=== PATIENT | male | born 1940 | race Caucasian/White ===

== ENCOUNTER → 2017-05-14 | Outpatient (CLI) | payer MEDICARE, OTHER ==
[~2017-05-14] MED LIST: 8 HOUR PAIN RE650 M1 PO; ASPIRIN EC81 MG PO; B COMPLETE1 EACH PO; COLACE100 MG PO; FISH OIL300 MG PO; GLUCOSAMINE &1 EAC1 PO; LIPITOR40 MG PO; MAGNESIUM250 M1 PO; ODORLESS GARLI300 MG PO; OSCAL + D500 MG PO; PERCOCET 5-3251 EACH PO; SAW PALMETTO C1 EACH PO; STOOL SOFTENER100 MG PO; THERA-VITE W/ B1 TAB PO; TOPROL XL25 MG PO; ULTRAM50 MG PO; VIAGRA100 MG PO; VITAMIN C500 M4 PO
== END | disposition disaster alternative care site (69) ==
LOC: GRAD 09:31
DX: C61 Malignant neoplasm of prostate (principal); M47.892 Other spondylosis, cervical region; M47.896 Other spondylosis, lumbar region; Z96.611 Presence of right artificial shoulder joint; Z96.612 Presence of left artificial shoulder joint
CPT/HCPCS: A9503